=== PATIENT | male | born 1985 | race Caucasian/White ===

== ENCOUNTER 2018-01-14 13:03 | Emergency (ER) | payer MEDICAID, OTHER ==
[~2018-01-14] VITALS: Ht 190.5 cm; Wt 99.8 kg
[~2018-01-14 13:03] MED LIST: LEVE500T13 PO
[2018-01-14 13:05] VITALS: BP_SYST 161
[2018-01-14] MEDS ORDERED: LEVE500T13 PO (13:20)
[2018-01-14 13:28] VITALS: BP_SYST 161
[2018-01-14] MEDS ORDERED: chlordiazePOXIDE HCL 25 MG CAPSULE PO ONE (13:30)
== END 2018-01-14 13:28 ==
LOC: SED 13:03
DX: Z02.89 Encounter for other administrative examinations (principal); G40.909 Epilepsy, unspecified, not intractable, without status epilepticus; F10.20 Alcohol dependence, uncomplicated; R03.0 Elevated blood-pressure reading, without diagnosis of hypertension
CPT/HCPCS: 99283

== ENCOUNTER 2018-01-14 15:57 | Emergency (ER) | payer MEDICAID ==
[~2018-01-14] VITALS: Ht 190.5 cm; Wt 99.8 kg
[2018-01-14 15:57] VITALS: BP_SYST 151
[2018-01-14] MEDS ORDERED: LORazepam 2 MG/ML VIAL (FOR ER USE) IVP ONE (16:15)
[2018-01-14] MEDS ORDERED: NACL 0.9% 1,000 ML IV ONE (16:15)
[2018-01-14 16:17] LABS: EOSINOPHILS # (AUTO) 0.1 K/uL (0.0-0.4); EOSINOPHILS % (AUTO) 1.3 % (0.0-4.0); HEMATOCRIT 47.4 % (36-54); HEMOGLOBIN 15.7 g/dL (14.0-18.0); LYMPHOCYTES # (AUTO) 1.8 K/uL (1.0-5.5); LYMPHOCYTES % (AUTO) 21.2 % (20.5-51.5); MEAN CORPUSCULAR HEMOGLOBIN 31 pg (27-31); MEAN CORPUSCULAR HGB CONC 33 % (32-36); MEAN CORPUSCULAR VOLUME 94 fL (79.0-98.0); MONOCYTES # (AUTO) 0.6 K/uL (0.0-1.0); NEUTROPHILS % (AUTO) 67.7 % (40.0-70.0); PLATELET COUNT (AUTO) 325 K/uL (130-430); RED BLOOD CELL COUNT(AUTO) 5.04 MIL/uL (4.2-6.2); RED CELL DISTRIBUTION WIDTH 12.4 % (9.0-15.0); WHITE BLOOD COUNT (AUTO) 8.4 K/uL (4.8-10.8)
[2018-01-14 16:22] LABS: BASOPHILS % (AUTO) 0.8 % (0.0-2.0); NEUTROPHILS # (AUTO) 5.9 K/uL (1.8-7.7)
[2018-01-14 16:29] LABS: CALCIUM 9.4 mg/dL (8.4-11.0); CREATININE 1.12 mg/dL (0.55-1.30); POTASSIUM 3.4 mmol/L (3.5-5.1)
[2018-01-14 16:34] LABS: ALBUMIN 4.3 g/dL (3.4-4.8); TOTAL BILIRUBIN 1.5 mg/dL (0.0-1.0)
[2018-01-14 18:18] VITALS: BP_SYST 150
== END 2018-01-14 18:18 ==
LOC: SED 15:57
DX: F10.239 Alcohol dependence with withdrawal, unspecified (principal); R03.0 Elevated blood-pressure reading, without diagnosis of hypertension; R56.9 Unspecified convulsions
CPT/HCPCS: 36415; 80053; 85025; 93005; 96361; 96374; 99285; J2060; J7030

== ENCOUNTER 2019-09-10 16:37 | Inpatient (IN) | payer MEDICAID ==
[~2019-09-10] VITALS: Ht 190.5 cm; Wt 44.9 kg
[~2019-09-10 16:37] MED LIST changes: -LEVE500T13 PO; +LEVE500T9 PO
--- NOTE | 2019-09-10 16:39 | NUR ---
Patient to ER bed 05 to gown for evaluation. Side rails up.
[2019-09-10 16:42] VITALS: BP_SYST 142
--- NOTE | 2019-09-10 16:48 | NUR ---
Patient states he would like to contact his mother, Mandeep. Phone number given is [phone].
--- NOTE | 2019-09-10 16:55 | NUR ---
pt arrives vis ACLS for seizure activity. Pt had an unwitnessed seizure per [facility]. Pt is currently incoherent and is mumbling incomprehensivley. Will conitnue to monitor.
--- NOTE | 2019-09-10 17:00 | NUR ---
pt had a seizure lasting approx [address] Duong is at the bedside.
--- NOTE | 2019-09-10 17:00 | NUR ---
Restraints applied per MD orders. Pt has agrressive and violent behavior.
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
[2019-09-10] MEDS ORDERED: ONDANSETRON HCL 4 MG/2 ML VIAL IVP ONE (17:15)
[2019-09-10] MEDS ORDERED: DIPHENHYDRAMINE INJ 50 MG/ML VIAL IM ONE (17:15)
[2019-09-10] MEDS ORDERED: LORazepam 2 MG/ML VIAL IM ONE (17:15)
[2019-09-10] MEDS ORDERED: levETIRAcetam 1,000 MG IV BAG 100 ML IV ONE (17:15)
[2019-09-10] MEDS ORDERED: NACL 0.9% 1,000 ML IV ONE ×3 (17:15→20:00)
[2019-09-10] MEDS ORDERED: HALOPERIDOL LACTATE 5 MG/ML VIAL IM ONE ×3 (17:15)
[2019-09-10] MEDS ORDERED: LORazepam 2 MG/ML VIAL ONE ×3 (17:17→21:56)
--- NOTE | 2019-09-10 17:30 | NUR ---
medicated the pt w/ Haldol, Benadryl, and Ativan per MD order.
[2019-09-10 17:33] LABS: BLOOD, URINE 1+ (NEGATIVE); CLARITY/URINE CLEAR (CLEAR); COLOR,URINE YELLOW (YELLOW); GLUCOSE,URINE NEGATIVE (NEGATIVE); KETONES,URINE TRACE (NEGATIVE); LEUKOCYTE ESTERASE ,URINE NEGATIVE (NEGATIVE); NITRITE, URINE NEGATIVE (NEGATIVE); PROTEIN URINE TRACE (NEGATIVE)
[2019-09-10 17:37] LABS: BILIRUBIN,URINE 1+ (NEGATIVE)
--- NOTE | 2019-09-10 17:45 | NUR ---
# 20 gauge angiocath placed to LFA. Use of asceptic technique. Opsite placed over site. Blood return noted. Blood for lab drawn from site. Flushed with 10 cc of normal saline. No evidence of infiltration noted. Patient tolerated well.
[2019-09-10 17:49] LABS: BACTERIA,URINE FEW /HPF (None Seen); RBC,URINE 0-3 /HPF (0-3); WBC,URINE 0-3 /HPF (0-3)
[2019-09-10 17:50] LABS: BASOPHILS # (AUTO) 0.1 K/uL (0.0-0.2); EOSINOPHILS # (AUTO) 0.5 K/uL (0.0-0.4); HEMOGLOBIN 16.3 g/dL (14.0-18.0); MUCUS,URINE 1+ /LPF (None Seen)
[2019-09-10 17:57] LABS: BASOPHILS % (AUTO) 0.8 % (0.0-2.0); EOSINOPHILS % (AUTO) 4.2 % (0.0-4.0); HEMATOCRIT 51.1 % (36-54); LYMPHOCYTES # (AUTO) 3.7 K/uL (1.0-5.5); LYMPHOCYTES % (AUTO) 30.7 % (20.5-51.5); MEAN CORPUSCULAR HEMOGLOBIN 32 pg (27-31); MEAN CORPUSCULAR HGB CONC 32 % (32-36); MEAN CORPUSCULAR VOLUME 101 fL (79.0-98.0); MONOCYTES % (AUTO) 8.3 % (1.7-9.3); NEUTROPHILS # (AUTO) 6.8 K/uL (1.8-7.7); PLATELET COUNT (AUTO) 326 K/uL (130-430); RED BLOOD CELL COUNT(AUTO) 5.08 MIL/uL (4.2-6.2); RED CELL DISTRIBUTION WIDTH 14.5 % (9.0-15.0); WHITE BLOOD COUNT (AUTO) 12.1 K/uL (4.8-10.8)
--- NOTE | 2019-09-10 18:00 | NUR ---
Edgar and LISSETT currently infusing per MD order.
[2019-09-10 18:07] LABS: BARBITURATE, URINE NEGATIVE (NEG <=200); BENZODIAZEPINE, URINE NEGATIVE (NEG <=150); CANNABINOID, URINE POSITIVE (NEG <=50); COCAINE, URINE NEGATIVE (NEG <=150); METHAMPHETAMINES SCREEN,URINE NEGATIVE (NEG <=500); OPIATE, URINE POSITIVE (NEG <=100); PHENCYCLIDINE SCREEN,URINE NEGATIVE (NEG <=25); UR TRICYCLIC ANTIDEPRESSANTS NEGATIVE (NEG <=300); URINE AMPHETAMINE NEGATIVE (NEG <=500); URINE METHADONE NEGATIVE (NEG <=200); URINE OXYCODONE SCREEN NEGATIVE (NEG <=100); URINE PROPOXYPHENE SCREEN NEGATIVE (NEG <=300)
--- NOTE | 2019-09-10 18:10 | NUR ---
# 16 FR Fernando catheter with use of sterile technique. UA sample colleceted and sent to the lab
[2019-09-10] MEDS ORDERED: DIPHENHYDRAMINE INJ 50 MG/ML VIAL IVP ONE (18:15)
--- NOTE | 2019-09-10 18:45 | NUR ---
Second liter of NS currently infusing.
[2019-09-10] MEDS ORDERED: LORazepam 2 MG/ML VIAL IVP ONE ×2 (19:00→21:45)
--- NOTE | 2019-09-10 19:10 | NUR ---
Ativan 2mg IVP given per MD order. Will reassess.
--- NOTE | 2019-09-10 19:18 | NUR ---
Care endorded to mark Steiner.
[2019-09-10 19:23] LABS: ANION GAP 13 (5-15); CALCIUM 8.9 mg/dL (8.4-11.0); CHLORIDE 103 mmol/L (98-107); CREATININE 1.36 mg/dL (0.55-1.30); GLUCOSE 121 mg/dL (70-99); POTASSIUM 3.5 mmol/L (3.5-5.1); SODIUM SERUM 141 mmol/L (136-145); UREA NITROGEN, BLOOD 15 mg/dL (8-21)
[2019-09-10 19:28] LABS: GFR AFRICAN AMERICAN 79 mL/min (>90)
[2019-09-10 19:29] LABS: ALANINE AMINOTRANSFERASE 33 U/L (12-78); ALBUMIN 4.1 g/dL (3.4-4.8); ASPARTATE AMINOTRANSFERASE 42 U/L (10-37); TOTAL BILIRUBIN 0.8 mg/dL (0.0-1.0)
[2019-09-10 19:34] LABS: ACETAMINOPHEN < 1 ug/mL (1-30); ALCOHOL, BLOOD < 3 mg/dL (<10)
--- NOTE | 2019-09-10 20:23 | NUR ---
Pt moved to ER bed 2 to be intubated. Pt remains on continuous bedside cardiac monitoring with pulse oximetry. Crash cart placed to bedside. Dr. Duong, Dr. Grove, RT, EMT, and myself at bedside. Time out performed.
[2019-09-10] MEDS ORDERED: PROPOFOL DRIP 100 ML IV ONE (20:30)
[2019-09-10] MEDS ORDERED: ETOMIDATE 20 MG/ 10 ML VIAL (AMIDATE) IVP ONE (20:30)
[2019-09-10] MEDS ORDERED: ROCURONIUM BROMIDE 10 MG/ML (ZEMURON) IV ONE (20:30)
--- NOTE | 2019-09-10 20:32 | NUR ---
Pt premedicated with Etomidate 20 mg and Rocuronium 50 mg as ordered per Dr. Duong.
--- NOTE | 2019-09-10 20:40 | NUR ---
Pt intubated by Dr. Duong with 8 mm ETT, secured at 23 cm to lip. Vent settings per RT: Vt 600, R 12, PEEP 5, FiO2 50%. V/S: T 98.8 P 126, R 12, B/P 137/70. BBS clear with even respirations, SPO2 100%.
[2019-09-10 20:45] LABS: CKMB RELATIVE INDEX 0.2 (0.0-2.9); CREATINE KINASE MB 3.8 ng/mL (0-3.6)
--- NOTE | 2019-09-10 20:45 | NUR ---
Pt moving in bed. 4-point velcro restraints remain in place. V/S: P 125, R 12, B/P 167/81, SPO2 97%. Propofol infusion started at 5 mcg/kg/min.
--- NOTE | 2019-09-10 20:58 | NUR ---
X-ray at bedside.
--- NOTE | 2019-09-10 20:58 | NUR ---
Arianna jj in [facility] - 09/10/19 at 2207 by [email or web address] X-ray at bedside.
--- NOTE | 2019-09-10 21:00 | NUR ---
Order for restraints renewed per Dr. Grove.
--- NOTE | 2019-09-10 21:05 | NUR ---
Pt squirming about in bed. V/S: P 118, R 12, B/P 163/84, SPO2 98%. Propofol infusion increased to 10 mcg/kg/min.
--- NOTE | 2019-09-10 21:10 | NUR ---
Arianna jj in [facility] - 09/10/19 at [email or web address] Grove confirms correct ETT placement.
--- NOTE | 2019-09-10 21:10 | NUR ---
Dr. Grove confirms correct ETT placement.
--- NOTE | 2019-09-10 21:14 | NUR ---
Pt squirming about in bed. 4-point Velcro restraints remain in place. V/S: P 115, R 12, B/P 144/88, SPO2 99%. Propofol infusion increased to 15 mcg/kg/min.
[2019-09-10] MEDS ORDERED: fentaNYL CITRATE/PF 100 MCG/2 ML AMP IVP ONE (21:15)
--- NOTE | 2019-09-10 21:15 | NUR ---
RT at bedside to increase FiO2 to 60%.
--- NOTE | 2019-09-10 21:20 | NUR ---
Pt moving about in bed. [address] V/S: P 133, R 12, B/P 137/70, SPO2 99%. Propofol infusion increased to 20 mcg/kg/min.
--- NOTE | 2019-09-10 21:23 | NUR ---
RT collecting sample for ABG.
--- NOTE | 2019-09-10 21:23 | NUR ---
Arianna jj in ED - 09/10/19 at 2205 by [email or web address] RT collecting sample for ABG.
--- NOTE | 2019-09-10 21:30 | NUR ---
Pt squirming in bed. V/S P 120, R 12, B/P 134/67, SPO2 98%. Propofol infusion increased to 25 mcg/kg/min. Extremities repositioned and 4-point restraints remain in place.
--- NOTE | 2019-09-10 21:35 | NUR ---
Pt moving about in bed. V/S: P 130, R 12, B/P 157/84, SPO2 100%. Propofol infusion increased to 30 mcg/kg/min.
--- NOTE | 2019-09-10 21:40 | NUR ---
Pt to CT accompanied by myself and RTs x 2, on bus monitor and wrist restraints. Pt resting quietly.
--- NOTE | 2019-09-10 21:45 | NUR ---
Upon attempt to transfer pt to CT table, pt begins thrashing about pulling at IV line and ETT. Dr. Grove notified and instructed to increase Propofol infusion to 50 mcg/kg/min and administer Ativan 4 mg IVP.
--- NOTE | 2019-09-10 21:50 | NUR ---
Pt calm and CT performed.
--- NOTE | 2019-09-10 21:55 | NUR ---
Pt returns from CT accompanied by RT, reconnected to Vent and bedside pilot control operator helper. No changes in vent settings. Propofol continues to infuse at 50 mcg/kg/min to patent and secure PIV LAC. VSS. Pt Pt calm with eyes closed.
--- NOTE | 2019-09-10 22:00 | NUR ---
Pt resting quietly with even and non-labored respirations. V/S: P 87, R 12, B/P 116/61, SPO2 100%.
--- NOTE | 2019-09-10 22:15 | NUR ---
Pt begins squirming in bed. 4-point restraints remain in place to prevent pt from pulling on medical devices. Will continue to monitor to change pt to soft restraints.
--- NOTE | 2019-09-10 22:30 | NUR ---
RT at bedside to provide oral suction. V/S P 79, R 12, B/P 113/66, SPO2 100%.
--- NOTE | 2019-09-10 22:45 | NUR ---
RT at bedside to decrease FiO2 to 40%.
--- NOTE | 2019-09-10 22:50 | NUR ---
# 18 gauge angiocath placed to RFA. Use of asceptic technique. Opsite placed over site. Blood return noted. Blood Cx x 2 collected and sent to lab prior to antibiotic administration. Flushed with 10 cc of normal saline. No evidence of infiltration noted. Patient tolerated well.
[2019-09-10] MEDS ORDERED: LORazepam 2 MG/ML VIAL IM PRN (23:00)
[2019-09-10] MEDS: LEVOFLOXACIN 500 MG/D5W 100 ML IV SCH (23:00)
--- NOTE | 2019-09-10 23:00 | NUR ---
Resting quietly, Extremities repositioned, 4-point velcro restraints in place. V/S: P 77, R 12, B/P 110/64, SPO2 100%.
--- NOTE | 2019-09-10 23:10 | NUR ---
Pt resting quietly, BBS clear with respirations even and non-labored per mechanical ventilation. ETT remains secure at 23 cm to lip. VSS. No change in vent settings. Propofol infusion continues to infuse at 50 mcg/kg/min to patent and secure PIV LAC. Extremities repositioned with 4-point velcro restraints in place. No signs of skin break down noted. F/C patent and secure draining yellow and cloudy urine with total U/O 1200 mL.
[2019-09-10 23:20] VITALS: BP_SYST 158
--- NOTE | 2019-09-10 23:20 | NUR ---
RECEIVED FROM ER DEPT A 33 YO W MALE WITH DIAGNOSIS OF STATUS EPILEPTICUS. ORALLY INTUBATED. ON DIPRIVAN DRIP AT 50 MCG/KG/MIN. ROSE SOFT WRIST RESTRAINTS IN PLACE FOR SAFETY, APPLIED IN ER. SR. BEAR CATH PATENT DRAINING CLEAR HETAL URINE TO GRAVITY.
--- NOTE | 2019-09-10 23:20 | NUR ---
Patient will be admitted to [facility]. Admitted to ICU unit. Will go to room 8. Belongings list completed. Complete and up to date summary report printed. SBAR report to be given at bedside with opportunity for questions.
[2019-09-11] VITALS (27 sets, daily range): BP systolic 107–160
--- NOTE | 2019-09-11 00:34 | NUR ---
DR YANG CALLED, UPDATED ON STATUS. NEW ORDERS GIVEN A TO BE IMPLEMENTED.
[2019-09-11] MEDS ORDERED: PROPOFOL DRIP 100 ML IV ONE ×2 (00:59→20:21)
--- NOTE | 2019-09-11 01:00 | NUR ---
ATIVAN 1 MG IVP GIVEN FOR RESTLESSNESS.
[2019-09-11] MEDS: PROPOFOL DRIP 100 ML IV PRN ×8 (01:10→21:21)
[2019-09-11] MEDS: D5NS 1,000 ML IV SCH ×3 (01:12→16:04)
[2019-09-11] MEDS: LORazepam 2 MG/ML VIAL IVP PRN ×6 (01:13→17:05)
--- NOTE | 2019-09-11 04:00 | NUR ---
CIRCULATION CHECK DONE. ATIVAN 1 MG IVP GIVEN FOR AGITATION. SUCTIONED. ORAL CARE GIVEN. DIPRIVAN DRIP STILL AT 50 MCG/KG/MIN.
[2019-09-11 05:58] LABS: BASOPHILS % (AUTO) 0.3 % (0.0-2.0); EOSINOPHILS # (AUTO) 0.1 K/uL (0.0-0.4); HEMATOCRIT 37.9 % (36-54); LYMPHOCYTES # (AUTO) 1.3 K/uL (1.0-5.5); LYMPHOCYTES % (AUTO) 19.3 % (20.5-51.5); MEAN CORPUSCULAR HEMOGLOBIN 33 pg (27-31); MEAN CORPUSCULAR HGB CONC 34 % (32-36); MEAN CORPUSCULAR VOLUME 95 fL (79.0-98.0); MONOCYTES # (AUTO) 0.5 K/uL (0.0-1.0); MONOCYTES % (AUTO) 7.5 % (1.7-9.3); NEUTROPHILS # (AUTO) 4.9 K/uL (1.8-7.7); NEUTROPHILS % (AUTO) 71.9 % (40.0-70.0); PLATELET COUNT (AUTO) 238 K/uL (130-430); RED BLOOD CELL COUNT(AUTO) 3.97 MIL/uL (4.2-6.2); RED CELL DISTRIBUTION WIDTH 13.7 % (9.0-15.0)
--- NOTE | 2019-09-11 05:58 | NUR ---
DR FOSS'S EXCHANGE NOTIFIED OF CONSULT FOR THIS MORNING.TALKED TO SANTOSH
--- NOTE | 2019-09-11 06:00 | NUR ---
SUCTIONED AND TURNED Q2 HRS AND PRN. PULSES PALPABLE. UO GOOD. DIPRIVAN AT 50 MCG/KG/MIN. REMAINS IN GUARDED CONDITION.
[2019-09-11 06:08] LABS: POTASSIUM 3.5 mmol/L (3.5-5.1); TOTAL BILIRUBIN 0.6 mg/dL (0.0-1.0)
[2019-09-11 06:28] LABS: WHITE BLOOD COUNT (AUTO) 6.8 K/uL (4.8-10.8)
[2019-09-11 06:31] LABS: CALCIUM 7.5 mg/dL (8.4-11.0); CREATININE 0.92 mg/dL (0.55-1.30)
--- NOTE | 2019-09-11 07:20 | NUR ---
AM ASSESSMENT Pt received from Sabas SHARMA using SBAR. Pt was received restless in bed.
--- NOTE | 2019-09-11 07:25 | NUR ---
Opening Note Received patient report via SBAR from endorsing RN
--- NOTE | 2019-09-11 07:30 | NUR ---
Witnessed diprivan drip increased to 55 mcg/kg
--- NOTE | 2019-09-11 07:35 | NUR ---
Witnessed diprivan ip increased to 60 mcg/kg Addendum: 09/11/19 at 1937 by Meenu Laura RN incorrect time
--- NOTE | 2019-09-11 07:50 | NUR ---
Witnessed Diprivan increased to 60 mcgs.
--- NOTE | 2019-09-11 08:00 | NUR ---
Witnessed diprivan increased to 65 mcgs.
--- NOTE | 2019-09-11 08:20 | NUR ---
Witnessed diprivan drip increased to 70 mcgs
[2019-09-11] MEDS ORDERED: BANANA BAG 1 EA, FOLIC ACID 1 MG, THIAMINE HCL 100 MG, MAGNESIUM SULFATE 1 GM, MVI 10 M... IV SCH ×5 (08:30)
[2019-09-11] MEDS: PANTOPRAZOLE SODIUM 40 MG/VIAL (PROTONIX) IVP SCH (08:44)
[2019-09-11] MEDS: levETIRAcetam 500 MG in NS 100 ML IV SCH ×2 (08:44→20:13)
--- NOTE | 2019-09-11 09:40 | NUR ---
RT NOTES- SIMV 8 PT PLACED ON SIMV 8, PS10 AT THIS TIME PER DR. KATZ. TOLERATING WELL. RN SRIRAM MADE AWARE. WILL CONTINUE MONITORING.
[2019-09-11] MEDS: MORPHINE 4 MG/ML INJ. SYRINGE IVP PRN (09:56)
[2019-09-11] MEDS ORDERED: THIAMINE HCL 100 MG TABLET PO SCH (10:00)
[2019-09-11] MEDS: MVI 10 ML, FOLIC ACID 1 MG in NACL 0.9% 1,000 ML IV SCH (10:33)
[2019-09-11] MEDS: MAGNESIUM SULFATE 1 GM, THIAMINE HCL 100 MG in NS 100 ML IV SCH (10:35)
--- NOTE | 2019-09-11 10:45 | NUR ---
RT NOTES- ETT 28CM ADVANCED ETT FROM 23CM TO 28CM. CONFIRMED WITH . RN SRIRAM EPPS.
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
--- NOTE | 2019-09-11 15:00 | NUR ---
JENNYG JENNYG provided to pt.
--- NOTE | 2019-09-11 19:20 | NUR ---
Closing Notes Report given to Reymundo SHARMA using SBAR.
--- NOTE | 2019-09-11 21:15 | NUR ---
RN NOTES DIPRIVAN DRIP TITRATED DOWN TO 65 MCG. WITNESSED WITH EDITH GARCIA
[2019-09-11] MEDS: LEVOFLOXACIN 500 MG/D5W 100 ML IV SCH (22:07)
--- NOTE | 2019-09-11 22:10 | NUR ---
RN NOTES DIPRIVAN DRIP TITRATED DOWN TO 60 MCG. WITNESSED WITH EDITH GARCIA
[2019-09-12] VITALS (17 sets, daily range): BP systolic 121–164
[2019-09-12] MEDS: PROPOFOL DRIP 100 ML IV PRN ×4 (00:09→10:58)
[2019-09-12] MEDS: LORazepam 2 MG/ML VIAL IVP PRN ×3 (00:26→08:31)
--- NOTE | 2019-09-12 00:28 | NUR ---
RN Rounds Pt remains in bed asleep. PRN Medication given for agitation. No s/s of distress noted. Diprivan currently infusing @50 mcg/kg/min. Pt tolerating well, Henson scale of 4 noted. Will continue to monitor.
--- NOTE | 2019-09-12 00:29 | NUR ---
RN NOTES TERARIVAN DRIP AT 50 MCG. WITNESSED BY EDITH GARCIA
--- NOTE | 2019-09-12 02:05 | NUR ---
RN NOTES DIPRIVAN DRIP TITRATED DOWN TO 45 MCG. WITNESSED BY EDITH GARCIA
[2019-09-12] MEDS: D5NS 1,000 ML IV SCH (03:14)
--- NOTE | 2019-09-12 03:17 | NUR ---
RN NOTES DIPRIVAN DRIP TITRATED TO 50 MCG. WITNESSED WITH EDITH GARCIA
[2019-09-12] MEDS: MORPHINE 4 MG/ML INJ. SYRINGE IVP PRN ×2 (03:27→10:04)
--- NOTE | 2019-09-12 03:34 | NUR ---
RN Rounds Pt in bed asleep. PRN medication given. Pt tolerated well. No s/s of distress noted. Pt VSS. Will continue to monitor.
[2019-09-12 05:51] LABS: BASOPHILS # (AUTO) 0.1 K/uL (0.0-0.2); EOSINOPHILS # (AUTO) 0.1 K/uL (0.0-0.4); EOSINOPHILS % (AUTO) 1.7 % (0.0-4.0); HEMOGLOBIN 12.7 g/dL (14.0-18.0); LYMPHOCYTES # (AUTO) 1.1 K/uL (1.0-5.5); LYMPHOCYTES % (AUTO) 15.6 % (20.5-51.5); MEAN CORPUSCULAR HEMOGLOBIN 32 pg (27-31); MEAN CORPUSCULAR HGB CONC 34 % (32-36); MEAN CORPUSCULAR VOLUME 96 fL (79.0-98.0); MONOCYTES # (AUTO) 0.5 K/uL (0.0-1.0); MONOCYTES % (AUTO) 7.6 % (1.7-9.3); NEUTROPHILS # (AUTO) 5.1 K/uL (1.8-7.7); NEUTROPHILS % (AUTO) 74.1 % (40.0-70.0); PLATELET COUNT (AUTO) 219 K/uL (130-430); RED BLOOD CELL COUNT(AUTO) 3.97 MIL/uL (4.2-6.2); RED CELL DISTRIBUTION WIDTH 13.7 % (9.0-15.0); WHITE BLOOD COUNT (AUTO) 6.9 K/uL (4.8-10.8)
--- NOTE | 2019-09-12 05:53 | NUR ---
RN Rounds Pt in bed, no s/s of distress noted. Tolerating Diprivan @50mcg/kg/min. No s/s of resp. distress. VSS. Pt has not had BM, but is urinating adequately via castaneda catheter. IVF infusing and IV sites are C/D/I. Will continue to monitor.
[2019-09-12 06:13] LABS: ALBUMIN 2.8 g/dL (3.4-4.8); CALCIUM 7.5 mg/dL (8.4-11.0); CREATININE 0.81 mg/dL (0.55-1.30); POTASSIUM 3.2 mmol/L (3.5-5.1); TOTAL BILIRUBIN 0.4 mg/dL (0.0-1.0)
--- NOTE | 2019-09-12 06:31 | NUR ---
Closing Note Pt in bed asleep. SR on the monitor. Vent settings remains the same. Pt showing no s/s of resp distress. Pt has IVF infusing and Diprivan @50mcg/kg/min. Pt Iv sites C/D/I. No s/s of infiltration noted. Pt has OG clamped. Pt has restraints noted bilaterally. No skin breakdown noted. Pt has castaneda catheter in, training urine to gravity. No s/s of pain noted. Bed locked in lowest position, call light in reach, and safety precautions in place. Will endorse to oncoming RN.
--- NOTE | 2019-09-12 07:11 | NUR ---
Endorsement Pt report given to oncoming RN at bedside via SBAR approach.
--- NOTE | 2019-09-12 07:45 | NUR ---
PRIMARY ASSESSMENT RECEIVED PATIENT AFTER REPORT FROM OUTGOING RIDING SILKS CUSTODIAN. PATIENT RESTING WITH BOTH EYES CLOSED UNDER SEDATION WITH DIPRIVAN DRIP RUNNING AT 50 MCG/K/MIN. ACKERMAN SCALE AT 4. IV LINES PATENT AND INFUSING PER ORDERS. BILATERAL UPPER EXTREMITIES EDEMA NOTED. PT ON MECHANICAL VENTILATION WITH SETTINGS: SIMV 8, TV 550, FIO2 30%, PEEP 5, PS 10 AND TOLERATING WITH O2 SATS 100%. CHEST RISE SYMMETRICAL AND LUNG SOUNDS CLEAR IN ALL LOBES. BOWEL SOUNDS PRESENT IN ALL QUADRANTS. BEAR CATHETER PRESENT AND DRAINING YELLOW DARK WITH GREENISH TINGE URINE. SDC'S IN PLACE PROPHYLAXIS FOR DVT. HEAD OF THE BED ELEVATED AT 35 DEGREES. WILL CONTINUE TO MONITOR PATIENT PER UNIT PROTOCOL.
[2019-09-12] MEDS: levETIRAcetam 500 MG in NS 100 ML IV SCH (08:34)
--- NOTE | 2019-09-12 10:00 | NUR ---
RT NOTES PLACED PT ON CPAP 5, PS10, 30%FI2O PER ORDER. RN KARLA MADE AWARE. WILL CONTINUE MONITOR.
[2019-09-12] MEDS: PANTOPRAZOLE SODIUM 40 MG/VIAL (PROTONIX) IVP SCH (10:04)
[2019-09-12] MEDS ORDERED: POTASSIUM CHLORIDE 40 MEQ in NS 250 ML IV ONE (10:30)
[2019-09-12] MEDS: MAGNESIUM SULFATE 1 GM, THIAMINE HCL 100 MG in NS 100 ML IV SCH (10:59)
[2019-09-12] MEDS: MVI 10 ML, FOLIC ACID 1 MG in NACL 0.9% 1,000 ML IV SCH (11:00)
--- NOTE | 2019-09-12 11:20 | NUR ---
Call out to Dr. Booth for a PICC line . Pt only has 1 IV with diprivan infusing. The other IV site to the RU arm infiltrated.
--- NOTE | 2019-09-12 11:43 | NUR ---
Second call out to Dr. Booth regarding a PICC line order. Pts mom in to see him and left.
--- NOTE | 2019-09-12 13:00 | NUR ---
TIME OUT. PICC NURSE AT BEDSIDE, TIME OUT DONE.
--- NOTE | 2019-09-12 14:00 | NUR ---
IV DRIPS DIPRIVAN DRIP TURNED OFF AT THIS TIME; RESTRAINTS REMOVED FROM WRIST. SKIN INTACT AROUND THE WRISTS. PATIENT ABLE TO OPEN EYES ON COMMAND, SHIFTING BODY SIDE TO SIDE. FOLLOWS COMMANDS. ORAL SUCTION DONE NEEDED. PATIENT WILL BE EXTUBATED PER DR KATZ'S ORDERS.
--- NOTE | 2019-09-12 14:10 | NUR ---
VENT OFF RT AT BEDSIDE, EXPLAINED PROCEDURE TO PATIENT. SUCTION NEEDED VIA YANKAUER. ET TUBE REMOVED WELL OG TUBE. ORALLY SUCTIONED; PATIENT TOLERATED WELL. PATIENT EXPRESSED "I WANT TO GO HOME". EXPLAINED TO PATIENT NEED TO REMAIN IN ICU UNIT TO CONTINUE TO OBSERVE AND FOR SAFETY. O2 VIA NASAL CANNULA AT 2 L/MIN APPLIED WITH O2 SATS 100% PER MONITOR.
--- NOTE | 2019-09-12 14:10 | NUR ---
RT NOTES - EXTUBATION RN TURN OFF DIPRIVAN. PT AROUSABLE. EXPLAINED TO PT REGARDING EXTUBATION. ETT REMOVED WITH ASSISTS OF RN AT 1410. PT PLACED ON 2L N/C ORDERED BY . SPO2 100%. WILL CONTINUE MONITORING.
--- NOTE | 2019-09-12 14:26 | NUR ---
LOC PATIENT AWAKE AND ORIENTED TO PLACE, AND PERSON. REQUIRES FREQUENT REMINDERS TO AVOID DISLODGMENT OF LINES. CONTINUES TO APPEAR DROWSY AND EASILY FALLING ASLEEP. EASY TO AROUSE WHEN NEEDED. ABLE TO BRING UP SECRETIONS ON HIS OWN. MOVING ALL EXTREMITIES WITHOUT DIFFICULTY. WILL CONTINUE TO MONITOR PATIENT FOR SAFETY.
--- NOTE | 2019-09-12 15:16 | NUR ---
Dietitian Recommendations * Consider alternative route of nutrition support (EN versus TPN) LP, RD Please refer to Nutrition Assessment for details. Signed: 09/12/19 at 1517 by America YIP <Co-Signature Required> Co-Signed: 09/12/19 at [address] Addendum: 09/12/19 at 1518 by America YIP Amended: Links added.
--- NOTE | 2019-09-12 16:08 | NUR ---
LOC. PT JUST PULLED OUT HIS IV FROM RIGHT UPPER ARM, STATED "I'M NOT COMFORTABLE, CALL MY MOM, I WANT TO GO HOME." , ASSESSED PT FOR ANY DISCOMFORTS, PT DID NOT ANSWER, TURNED HIS BODY TO THE SIDE, POSITION.
--- NOTE | 2019-09-12 16:16 | NUR ---
[facility] Clerk Note TAILER OUT conducted a Discharge Plan Assessment and ICU Assessment. TAILER OUT attempted to speak with patient this morning but he was on a vent. Phoned patient's mother, Glenda Callejas [phone]. She returned the call later in the day. She stated patient can no longer live in her home due to his drug abuse and failure to care for himself. He has been abusing substances for many years and does not follow up with a PCP to Juan A's knowledge. He would be welcome back only after he completed a substance abuse program. Patient is now homeless. Explained that we can provide resources and encouragement but cannot force patient to go to a substance abuse program. Went to patient's room. Patient was asleep. Spoke with Guillermina SHARMA who stated that she would prefer patient not be agitated at this time. Left a list of homeless resources in patient's chart with the following items highlighted: local long term, winter long term, substance abuse resource hotline for [facility] patients. A list of community health clinics is on the form also. [facility] Clerk will follow up tomorrow.
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
--- NOTE | 2019-09-12 16:30 | NUR ---
FAMILY. CALLED UP PT'S MOTHER JESSICA VIA PHONE, UPDATED HER ON HIS BEHAVIOR, PT WANTED TO GET OUT OF THE HOSPITAL, WILL NOT KEEP ANYTHING ON HIS BODY, GROUNDSMAN, IV, BLANKET.
--- NOTE | 2019-09-12 16:38 | NUR ---
Pt removed all monitoring equipment and has pulled out his PICC line and all IV's. Dr Booth notified of this and that he is naked in bed and wants to leave AMA. Bedside RN spoke to patient brother who is coming over to see him.
[2019-09-12] MEDS ORDERED: ROCURONIUM BROMIDE 10 MG/ML (ZEMURON) IV ONE (16:54)
[2019-09-12] MEDS ORDERED: ETOMIDATE 20 MG/ 10 ML VIAL (AMIDATE) IVP ONE (16:54)
--- NOTE | 2019-09-12 16:55 | NUR ---
Pts mom and brother at bedside. They brought him clothes. Pt said he wants to leave AMA and the pts mom informed him he could not go home and he would need to go somewhere else. Explained to the patient that he was leaving against the doctors advice and that we did not think he was ready to leave nor that it was safe. Pt said it was fine and he is going to sleep in his room. Pt put his clothes on and was yelling because his mom said he couldn't go live at home. The patient said yes he could and he was going home now and going to sleep in his room. I requested security to be called and pt said 'No" and climbed over the side rail of the bed and started walking very fast toward the exit with his pants half on and half off. Pt refused to sign AMA form. Pt refused to accept homeless fpc paperwork,however I stuffed it in his hand as he was going down the calixto. Security walked with patient out of the hospital door. Pts gait unsteady as he was walking. Bedside RN followed from a distance. Pt left without his tennis shoes and given to his family who remained behind and did not leave after the patient left.
== END 2019-09-12 16:55 | disposition left against medical advice (07) | DRG 469 ==
LOC: SED 16:37 → SIC 22:15
PROVIDERS: ADMIT Internal Medicine Hospice and Palliative Medicine; ATTEND Internal Medicine Hospice and Palliative Medicine
PROC: 0BH17EZ Insertion of Endotracheal Airway into Trachea, Via Natural or Artificial Opening (ICD-10-PCS; principal; 2019-09-10)
PROC: 5A1945Z Respiratory Ventilation, 24-96 Consecutive Hours (ICD-10-PCS; 2019-09-10)
PROC: 02HV33Z Insertion of Infusion Device into Superior Vena Cava, Percutaneous Approach (ICD-10-PCS; 2019-09-12)
PROC: B548ZZA Ultrasonography of Superior Vena Cava, Guidance (ICD-10-PCS; 2019-09-12)
DX: N17.9 Acute kidney failure, unspecified (principal); J96.00 Acute respiratory failure, unspecified whether with hypoxia or hypercapnia; R65.11 Systemic inflammatory response syndrome (SIRS) of non-infectious origin with acute organ dysfunction; M62.82 Rhabdomyolysis; G40.901 Epilepsy, unspecified, not intractable, with status epilepticus; Z53.29 Procedure and treatment not carried out because of patient's decision for other reasons; F10.20 Alcohol dependence, uncomplicated; F11.10 Opioid abuse, uncomplicated; F12.10 Cannabis abuse, uncomplicated; F15.10 Other stimulant abuse, uncomplicated; D72.829 Elevated white blood cell count, unspecified; Z91.14 Patient's other noncompliance with medication regimen
CPT/HCPCS: 36415; 36600; 70450-TC; 71045; 80053; 80307; 81000-TC; 82542; 82550-TC; 82553-TC; 82803-TC; 83605; 85025; 87040-TC; 87081; 87086; 93005; 94002; 94003; 94640; 95816; 96365; 96367; 96375; 96376; 99291; 99292; C1751; C9113; G0480; G0481; G0482; J1200; J1953; J1956; J2060; J2270; J2405; J2704; J3010; J3411; J3475; J3480; J3490; J7030; J7042; J7050

== ENCOUNTER 2020-03-23 21:17 | Emergency (ER) | payer MEDICAID ==
[~2020-03-23] VITALS: Ht 190.5 cm; Wt 113.4 kg
[2020-03-23 21:17] VITALS: BP_SYST 155
--- NOTE | 2020-03-23 21:24 | NUR ---
Patient to ER bed 4 to gown for evaluation. Side rails up.
--- NOTE | 2020-03-23 21:24 | NUR ---
Patient BIB EMS from home. C/O seizure x today. Per EMS reported, witness called, patient had clonic-tonic seizure ~ 30 sec , witness by mother, no injury, started IV 18 at the [facility]. Hx Epilepsy A/O,X4, denies pain, place patient on cardiac catheterization technologist, seizure pad.
--- NOTE | 2020-03-23 21:42 | NUR ---
ER Dr. Grove at bedside examining patient.
--- NOTE | 2020-03-23 22:12 | NUR ---
Welt Stitcher drawn blood at bedside.
[2020-03-23 22:29] LABS: BASOPHILS % (AUTO) 0.4 % (0.0-2.0); EOSINOPHILS # (AUTO) 0.2 K/uL (0.0-0.4); EOSINOPHILS % (AUTO) 2.6 % (0.0-4.0); HEMATOCRIT 45.2 % (36-54); HEMOGLOBIN 15.3 g/dL (14.0-18.0); LYMPHOCYTES # (AUTO) 0.9 K/uL (1.0-5.5); LYMPHOCYTES % (AUTO) 13.4 % (20.5-51.5); MEAN CORPUSCULAR HEMOGLOBIN 32 pg (27-31); MEAN CORPUSCULAR HGB CONC 34 % (32-36); MEAN CORPUSCULAR VOLUME 94 fL (79.0-98.0); MONOCYTES # (AUTO) 0.3 K/uL (0.0-1.0); MONOCYTES % (AUTO) 4.2 % (1.7-9.3); NEUTROPHILS # (AUTO) 5.1 K/uL (1.8-7.7); NEUTROPHILS % (AUTO) 79.4 % (40.0-70.0); PLATELET COUNT (AUTO) 301 K/uL (130-430); RED BLOOD CELL COUNT(AUTO) 4.81 MIL/uL (4.2-6.2); RED CELL DISTRIBUTION WIDTH 13.1 % (9.0-15.0); WHITE BLOOD COUNT (AUTO) 6.4 K/uL (4.8-10.8)
[2020-03-23 22:44] LABS: CALCIUM 9.1 mg/dL (8.4-11.0); CREATININE 1.1 mg/dL (0.55-1.30)
[2020-03-23 22:50] LABS: TOTAL BILIRUBIN 0.4 mg/dL (0.0-1.0)
[2020-03-23 23:27] LABS: BILIRUBIN,URINE 1+ (NEGATIVE); BLOOD, URINE NEGATIVE (NEGATIVE); CLARITY/URINE CLEAR (CLEAR); COLOR,URINE YELLOW (YELLOW); GLUCOSE,URINE NEGATIVE (NEGATIVE); KETONES,URINE TRACE (NEGATIVE); LEUKOCYTE ESTERASE ,URINE NEGATIVE (NEGATIVE); NITRITE, URINE NEGATIVE (NEGATIVE); PH,URINE 5.5 (5.0-8.0); PROTEIN URINE 1+ (NEGATIVE); UROBILINOGEN,URINE 0.2 (0.2-1.0)
[2020-03-23] MEDS ORDERED: levETIRAcetam 500 MG TABLET PO ONE (23:30)
[2020-03-23 23:33] LABS: BACTERIA,URINE RARE /HPF (None Seen); RBC,URINE 0-3 /HPF (0-3); WBC,URINE 0-3 /HPF (0-3)
[2020-03-23 23:38] LABS: BARBITURATE, URINE NEGATIVE (NEG <=200); BENZODIAZEPINE, URINE NEGATIVE (NEG <=150); CANNABINOID, URINE POSITIVE (NEG <=50); COCAINE, URINE NEGATIVE (NEG <=150); METHAMPHETAMINES SCREEN,URINE NEGATIVE (NEG <=500); OPIATE, URINE NEGATIVE (NEG <=100); PHENCYCLIDINE SCREEN,URINE NEGATIVE (NEG <=25); UR TRICYCLIC ANTIDEPRESSANTS NEGATIVE (NEG <=300); URINE AMPHETAMINE NEGATIVE (NEG <=500); URINE METHADONE NEGATIVE (NEG <=200); URINE OXYCODONE SCREEN NEGATIVE (NEG <=100); URINE PROPOXYPHENE SCREEN NEGATIVE (NEG <=300)
--- NOTE | 2020-03-23 23:45 | NUR ---
Patient given written and verbal discharge instructions and verbalizes understanding. ER MD discussed with patient the results and treatment provided. Patient in stable condition. ID arm band removed. Patient educated on pain management and to follow up with PMD. Pain Scale 0/10 Opportunity for questions provided and answered.
[2020-03-23 23:47] VITALS: BP_SYST 148
== END 2020-03-23 23:45 | disposition home or self-care (01) ==
LOC: SED 21:17
DX: R56.9 Unspecified convulsions (principal)
CPT/HCPCS: 36415; 80053; 80307; 81000-TC; 85025; 93005; 99284